=== PATIENT | female | born 1930 | race African-American/Black ===

== ENCOUNTER 2018-10-03 15:15 | Inpatient (IN) | payer OTHER ==
[~2018-10-03] VITALS: Ht 152.4 cm; Wt 50.3 kg
[~2018-10-03 15:15] MED LIST: ALEVE220 M1 PO; AMLODIPINE BESYL5 MG PO; ASPIR 8181 M1 PO; BELSOMRA10 MG PO; COZAAR100 MG PO; CRESTOR5 MG PO; FISH OIL 500 M1 EAC1 PO; FISH OIL300 MG; HYDRALAZINE 2525 MG PO; INDAPAMIDE2.5 MG PO; LANTUS SQ; NOVOLOG100 UNIT/1 SQ; PLAVIX 75 MG TA75 MG PO; PRAVACHOL20 MG PO; SAVAYSA30 MG PO; VITAMIN D1000 UNI1; VITAMIN D1000 UNI1 PO; XALATAN2.5 ML OP
[2018-10-03 15:19] VITALS: BP 215/92
[2018-10-03 15:57] LABS: ABSOLUTE NEUTROPHILS 4.8 thou/uL (1.4-8.2); BASOPHILS 0.7 % (0.0-2.0); HEMATOCRIT 40.2 % (37.0-47.0); HEMOGLOBIN 13.4 gm/dL (12.0-15.0); LYMPHOCYTES 28.8 % (24.0-44.0); MCH 32.8 pg (26.0-34.0); MCHC 33.4 g/dL (28.0-37.0); MCV 98.2 fL (80.0-100.0); MONOCYTES 9.3 % (1.0-8.0); PLATELET COUNT 210 thou/uL (150-400); POLYS 59.2 % (36.0-66.0); RDW 12.2 % (10.5-14.5)
[2018-10-03 16:08] LABS: PROTIME 10.4 Seconds (9.3-11.4)
[2018-10-03 16:09] LABS: URINE BILIRUBIN NEGATIVE (Negative); URINE BLOOD TRACE (Negative); URINE CLARITY CLEAR; URINE COLOR YELLOW; URINE GLUCOSE-RANDOM* TRACE (Negative); URINE KETONES NEGATIVE (Negative); URINE LEUKOCYTES-REFLEX NEGATIVE (Negative); URINE NITRITE-REFLEX NEGATIVE (Negative); URINE PROTEIN (DIPSTICK) NEGATIVE (Negative); URINE UROBILINOGEN 0.2 E.U./dl (0.2-1.0)
[2018-10-03 16:30] LABS: ALBUMIN 4.2 g/dL (3.4-5.0); CALCIUM 10.5 mg/dL (8.5-10.1); MAGNESIUM 2.3 mg/dL (1.8-2.4); TOTAL BILIRUBIN 1.1 mg/dL (<0.1-1.0)
[2018-10-03 17:32] VITALS: BP 190/85
[2018-10-03 19:42] VITALS: BP 130/54
[2018-10-03 20:00] VITALS: BP 205/89
[2018-10-03] MEDS ORDERED: COMBIGAN EYE DR10 ML OPHTHALMIC (20:38)
[2018-10-03 23:30] VITALS: BP 175/99
[2018-10-04] VITALS (7 sets, daily range): BP systolic 95–187; BP diastolic 54–101
--- NOTE | 2018-10-04 04:07 | NUR ---
PATIENT IS ALERT TO SELF AND SITUATION. PATIENT IS SBA WITH WALKER. PATIENT HAS SOME EXPRESSIVE APHASIA, VERY MILD ATAXIA, MILD CONFUSION. NIH IS A 4. PATIENT IS CLEAR LIQUIDS. SKYLER PASSED BEDSIDE SWALLOW. PATIENT HAS A PACE MAKER AND IS A-PACED ON TELE. SKYLER LIVES AT HOME WITH DAUGHTER ADOLFO ([place]). PATIENT CAN TURN SELF. PATIENT DENIES PAIN. PATIENT IS RESTING COMORTABLY IN BED. WMC. PATIENT IS PROGRESSING TO GOALS.
--- NOTE | 2018-10-04 18:42 | NUR ---
PATIENT HAS RESTED IN ROOM THROUGH THE DAY. MINIMAL STROKE SYMTOMS. SHE KNOWS WHERE SHE IS, NO DROOLING NOTED, STRENGHT EQUAL BOTH EXTREMITIES. SHE IS ALERT ORIENTED X4. NO CONCERNS RAISED AT THIS TIME. PLEASANT AND WITH CARE.
[2018-10-05 03:45] VITALS: BP 111/49
--- NOTE | 2018-10-05 05:49 | NUR ---
calls for assist out of bed. denies pain. she did wake up suddenly tonight and had a period of confusion, she re- orients easily. she asks many questions when medications offered to her, she is hesitant to take medications and unsure at times. blood pressure hypertensive tonight. recieved order to give clonidine prn for systolic blood pressure greater than 160. she did have a lower than normal pressure early this am.
[2018-10-05 06:23] LABS: CALCIUM 10.4 mg/dL (8.5-10.1); CREATININE 1.3 mg/dL (0.6-1.0); POTASSIUM 4.5 mmol/L (3.5-5.1)
[2018-10-05 07:32] VITALS: BP 92/60
[2018-10-05 11:18] VITALS: BP 94/44
[2018-10-05 15:24] VITALS: BP 107/55
[2018-10-05 16:35] LABS: CREATININE 1.6 mg/dL (0.6-1.0); POTASSIUM 4.4 mmol/L (3.5-5.1)
--- NOTE | 2018-10-05 18:00 | NUR ---
PATIENT DOES NOT SEEM TO BE IN PAIN AT THIS TIME. RESPIRATIOSN ARE NON LABORED. CREAT NOTED TO TREND UP THROUGH THE DAY. NEW ORDERS BY DR RUSSELL. PATIENT ENCOURAGED TO DRINK MORE FLUIDS. WILL CONT WITH PLAN OF CARE.
--- NOTE | 2018-10-05 18:17 | EKG ---
[address] [address] ELECTROCARDIOGRAM REPORT Name: ANTONIO ORTEZGLADIS Londono Room #: 360- ADM IN M.R.#: [id number] Admission: 10/03/18 Attend Phys: Odell Calderon MD, FAAF Discharge: Date of : 32 Report #: [id number] THIS REPORT FOR: //name// [facility] ED Test Date: 2018-10-03 Test Time: 15:59:13 Pat Name: SIENNA ORTEZ Department: Room: [facility] Gender: F Membership Solicitor: [place] : 1930 Requested By: Michel Funk Order Number: [id number] MD: Manuel Quesada Measurements Intervals [place] Rate: 60 P: LA: 132 QRS: 18 QRSD: 81 T: 77 QT: 423 QTc: 423 Interpretive Statements Atrial-paced rhythm Nonspecific ST segment abnormality Compared to ECG 02/24/2016 11:34:56 No significant change was found Electronically Signed On 10-05-2018 18:16:50 CDT by Manuel Quesada [email or web address] <ELECTRONICALLY SIGNED> By: Manuel Quesada MD, [facility] 10/05/18 1816 1559 1559 Manuel Quesada MD, [facility] /EPI
[2018-10-05 20:02] VITALS: BP 129/60
[2018-10-06] VITALS (7 sets, daily range): BP systolic 98–198; BP diastolic 47–80
[2018-10-06 01:05] LABS: GLYCOHEMOGLOBIN (HGB A1C) 6.1 % (4.8-5.6)
--- NOTE | 2018-10-06 04:12 | NUR ---
patient is alert and oriented. patient is nih is zero. nih is not ordered. patient is up time one with a walker. patient is a paced. patient has a pacemaker. patient is achs. patients blood pressure has been stable. patient is pending possible discharge. patient is resting comfortably in bed. wcm. patient is progressing to goals. patient denies pain.
[2018-10-06 05:54] LABS: CALCIUM 9.5 mg/dL (8.5-10.1); CREATININE 1.2 mg/dL (0.6-1.0); POTASSIUM 3.9 mmol/L (3.5-5.1)
[2018-10-06 05:59] LABS: ABSOLUTE NEUTROPHILS 3.2 thou/uL (1.4-8.2); BASOPHILS 0.4 % (0.0-2.0); EOSINOPHILS 2.8 % (0.0-3.0); HEMATOCRIT 35.1 % (37.0-47.0); HEMOGLOBIN 12.1 gm/dL (12.0-15.0); LYMPHOCYTES 41.3 % (24.0-44.0); MCH 34.1 pg (26.0-34.0); MCHC 34.5 g/dL (28.0-37.0); PLATELET COUNT 183 thou/uL (150-400); POLYS 46.5 % (36.0-66.0); RBC 3.55 mil/uL (4.20-5.00); RDW 12.1 % (10.5-14.5); WBC 6.9 thou/uL (4.0-11.0)
[2018-10-06 06:00] LABS: CALCIUM 9.6 mg/dL (8.5-10.1); CREATININE 1.2 mg/dL (0.6-1.0); PHOSPHORUS 3.3 mg/dL (2.5-4.9)
--- NOTE | 2018-10-06 14:27 | NUR ---
INITIAL ASSESSMENT: SW reviewed chart and spoke with nursing and attending physician. Pt was admitted from home due to CVA. Pt with hx of CVAs. Therapy evaluated to assess pt. 5N consult ordered today. SW met with pt at [facility]. Introduced role of SW. Pt is alert/orientated to self and place. Pt asked SW to contact her dtr, Tory. SW spoke with Tory via phone. Pt and dtr live in a ranch-style home. No steps to enter. No steps inside. Pt has cane, walker, BSC and shower bench. Pt has used [facility] in the past. [place] [facility] [place] Pt's PCP is Dr. Emery Calderon. SW explained that therapy will evaluate and make recommendation for discharge needs. SW is following to assist as needed with discharge planning.
--- NOTE | 2018-10-07 02:13 | NUR ---
PATIENT IS ALERT AND ORIENTED. PATIENT IS SBA. PATIENT USES A WALKER. PATIENT IS ON ROOM AIR. PATIENT IS A-PACED. PATIENT IS HAS A PACEMAKER. PATIENTS LBM WAS THE 22ND. PATIENT DENIES PAIN. THE PLAN IS TO GET A 5N EVAL TODAY AND POSSILBE TO TO REHAB. PATIENT IS RESTING COMFORTABLY IN BED. WCM. PATIENT IS PROGRESSING TO GOALS.
[2018-10-07 04:18] VITALS: BP 121/56
[2018-10-07 07:50] VITALS: BP 164/60
--- NOTE | 2018-10-07 10:36 | 2DMMODE ---
[facility] [employer] [place] [address] 2 D/M-MODE ECHOCARDIOGRAM Name: SIENNA ORTEZ R Room #: 360-P ADM IN M.R.#: [id number] Admission: 10/03/18 Attend Phys: Odell Calderon MD, Discharge: Date of : 32 Date of Service: 10/07/18 1036 Report #: [id number] THIS REPORT FOR: //name// APPROVED REPORT Study performed: 10/07/2018 09:41:43 EXAM: Comprehensive 2D, Doppler, and color-flow Echocardiogram Patient Location: Echo lab Room #: 360 Status: routine BSA: 1.45 HR: 62 bpm BP: 164/60 mmHg Rhythm: NSR Other Information Study Quality: Good Indications TIA. Hx: Pacemaker, CVA, HTN, DM. 2D Dimensions RVDd: 27.01 mm IVSd: 12.00 (7-11mm) LVOT Diam: 19.09 (18-24mm) LVDd: 31.00 mm PWd: 10.00 (7-11mm) Ascending Ao: 24.87 (22-36mm) LVDs: 19.10 (25-40mm) Aortic Root: 24.74 mm Volumes Left Atrial Volume (Systole) Single Plane 4CH: 12.89 mL Aortic Valve AoV Peak Rj.: 1.54 m/s AO Peak Gr.: 9.52 mmHg LVOT Max P.19 mmHg LVOT Max V: 1.02 m/s DONY Vmax: 1.90 cm2 Mitral Valve E/A Ratio: 0.6 MV Decel. Time: 357.61 ms MV E Max Rj.: 0.53 m/s MV A Rj.: 0.95 m/s [facility] [address] [place] [address] 2 D/M-MODE ECHOCARDIOGRAM Name: SIENNA ORTEZ Room #: 360-[facility] IN [facility].#: [id number] Admission: 10/03/18 Attend Phys: Odell Calderon MD, Discharge: Date of : 31 Date of Service: 10/07/18 1036 Report #: [id number] PHT: 103.71 ms IVRT: 100.35 ms Pulmonary Valve PV Peak Rj.: 0.65 m/s PV Peak Gr.: 1.71 mmHg Pulmonary Vein P Vein S: 0.64 m/s P Vein A: 0.53 m/s P Vein D: 0.26 m/s P Vein A Dur.: 138.4 msec P Vein S/D Ratio: 2.46 Tricuspid Valve TR Peak Rj.: 2.52 m/s RAP Estimate: 5.00 mmHg TR Peak Gr.: 25.35 mmHg PA Pressure: 30.00 mmHg Left Ventricle The left ventricle is normal size. There is normal LV segmental wall motion. Mild basal septal hypertrophy is present. Left ventricular systolic function is hyperdynamic. Mild intracavitary gradient (18 mmHg) LVEF is 65-70%. Mild diastolic dysfunction is present (impaired relaxation pattern). Right Ventricle The right ventricle is normal size. The right ventricular systolic function is normal. Atria The left atrium size is normal. The atrial septum is aneurysmal. No shunting by contrast bubble injection. The right atrium size is normal. Aortic Valve The aortic valve is mildly sclerotic No aortic regurgitation is present. There is no aortic valvular stenosis. Mitral Valve The mitral valve is normal in structure. Trace mitral regurgitation. Tricuspid Valve The tricuspid valve is normal in structure. Mild to moderate tricuspid regurgitation. Estimated PAP is 30-35mmHg. Pulmonic Valve Pulmonic valve is not well visualized. [address] [address] 2 D/M-MODE ECHOCARDIOGRAM Name: SIENNA ORTEZ Room #: 360-P [facility] IN [facility]#: [id number] Admission: 10/03/18 Attend Phys: Odell Caledron MD, Discharge: Date of : 31 Date of Service: 10/07/18 1036 Report #: [id number] Great Vessels The aortic root is normal in size. Ascending aorta is not well visualized. IVC is normal in size and collapses >50% with inspiration. Pericardium There is no pericardial effusion. <Conclusion> Left ventricular systolic function is hyperdynamic. Mild intracavitary gradient (18 mmHg) There is normal LV segmental wall motion. LVEF 65-70%. Mild diastolic dysfunction. The atrial septum is aneurysmal. No shunting by contrast bubble injection. The aortic valve is mildly sclerotic. No aortic regurgitation or stenosis. The mitral valve is normal in structure. Trace mitral regurgitation. Mild to moderate tricuspid regurgitation. Estimated pulmonary artery pressure of 30-35mmHg. There is no pericardial effusion. <ELECTRONICALLY SIGNED> By: Manuel Quesada MD, FACC 10/07/18 1036 1036 Manuel Quesada MD, FACC /INF
[2018-10-07 11:35] VITALS: BP 117/47
--- NOTE | 2018-10-07 14:28 | NUR ---
DISCHARGE NOTE: SW reviewed chart and spoke with nursing and 5N occupational rehabilitation aide, who states they are able to accept pt today. SW notified attending physician, who will discharge pt. SW met with pt at bedside to provide update and discuss moving to 5N. Pt is aware and agreeable with plan. Pt states that she knows that she needs to get stronger before returning home. SW left voice message for pt's dtr, Tory ([phone]) to provide update and notify of discharge. 5N occupational rehabilitation aide had spoke with Tory earlier today and Tory is agreeable with discharge. Awaiting final discharge orders at this time. Rehab SW/CM to follow and assist as needed with discharge planning.
--- NOTE | 2018-10-07 16:01 | NUR ---
PATIENT WILL BE DISCHARGED TO 5N SOMETIMES THIS PM. SHE IS ALERT ORIENTED X4. RESPIRATIOS NON LABORED. DOES NOT SEEM TO BE IN PAIN. UP WITH WALKER WITH ASSIST OF ONE. WILL CONT WITH PLAN OF CARE.
[2018-10-07 16:39] VITALS: BP 159/85
--- NOTE | 2018-10-07 19:38 | NUR ---
PATIENT DISCHARGED TO 5N. REPORT GIVEN TO NURSE. NO C/O PAIN AT THIS TIME.
--- NOTE | 2018-10-10 18:17 | H ---
[facility] [place] [address] HISTORY AND PHYSICAL Name: SIENNA ORTEZ Room #: 360-P [facility] IN M.R.#: [id number] Admission: 10/03/18 Attend Phys: Odell Calderon MD, [facility] Discharge: 10/07/18 Date of : 31 Report #: [id number] THIS REPORT FOR: //name// CC: Benny Calderon DATE OF SERVICE: 10/03/2018 CHIEF COMPLAINT: Stroke in evolution, garbled speech. HISTORY OF PRESENT ILLNESS: The patient is an 87-year-old black female well known to me with hypertension, insulin using diabetes, history of multiple strokes who had had some garbled speech, left facial droop intermittently over 2 weeks with sporadic elevations in her blood pressure as well. Her daughter called me and described her condition and said that it was worse and I directed them to the Emergency Department at [facility]. There, a CT scan of the head was normal. Her blood pressure was elevated, but responded to IV hydralazine. She is admitted to the hospital and a Neurology consult is placed. PAST MEDICAL HISTORY: Hysterectomy 1970s, multiple CVAs, TIAs, right lower quadrant hernia with no surgical intervention, diabetes using insulin, chronic renal insufficiency, hypertension, hyperlipidemia, pacemaker for sick sinus syndrome, ICD, mild dementia, sciatica. MEDICATIONS: Hydralazine 25 mg 1 p.o. q.6 hours p.r.n. blood pressure elevation, amlodipine 5 mg p.o. daily, losartan 100 mg 1 p.o. daily, Bystolic 5 mg to 10 mg p.o. daily p.r.n. elevated blood pressure, insulin NovoLog 3 units subQ q. a.c., fish oil 500 mg, soft gel one daily, Xalatan eye drops 0.005% 1 drop both eyes at bedtime, Lantus 5 units subQ at bedtime, Belsomra 20 mg at bedtime p.r.n. insomnia, pravastatin 20 mg 1 p.o. at bedtime. ALLERGIES: DETEMIR INSULIN, PENICILLIN, SULFA, CRESTOR. SOCIAL HISTORY: Nonsmoker. Lives with daughter, always sports active throughout her life. FAMILY HISTORY: Noncontributory. REVIEW OF SYSTEMS: Garbled speech, elevated blood pressure, left facial droop. No chest pain, shortness of breath. No abdominal pain. No lateralizing symptoms other than the face as far her neurologic status is concerned. No tingling, paresthesias. No focal debility. Remainder of systems review is negative. OBJECTIVE: VITAL SIGNS: Temperature 37.1, pulse 63, respirations 18, blood pressure [address] [address] HISTORY AND PHYSICAL Name: KIMBERLEE ORTEZAKANKSHA Londono Room #: 360-P [facility] IN M.R.#: [id number] Admission: 10/03/18 Attend Phys: Odell Calderon MD, FAAF Discharge: 10/07/18 Date of : 31 Report #: [id number] 215/92, pulse oximetry on room air is 100%. She weighs 52.16 kilograms or 115 pounds. GENERAL: She is alert. She is no immediate distress. She does have some expressive aphasia though and some garbled speech. She has a left facial droop. HEENT: Pupils are equal, round and reactive to light and accommodation. Extraocular muscle intact. Pharynx unremarkable. Tongue is midline. NECK: Supple. CARDIOVASCULAR: S1, S2. CHEST: Clear. ABDOMEN: Soft, nontender. EXTREMITIES: No cyanosis, clubbing or edema. NEUROLOGIC: She has some garbled speech, expressive aphasia, left facial droop, but motor strength 4/5 bilaterally and throughout all four extremities. DERMATOLOGIC: No disturbing lesions or rash. LABORATORY DATA: EKG: Paced rhythm, rate 60. LABORATORY EVALUATION: CBC: White count 8.0, hemoglobin 13.4, hematocrit 40.2, platelets 210,000. Differential white count 59% segmented neutrophils, 28% lymphocytes, 9% monocytes, 2% eosinophils, 0.7% basophils. PT 10.4, INR 1.0. Chemistry: Sodium 143, potassium 4.0, chloride 106, CO2 of 28, anion gap 9, BUN 19, creatinine 1.0. Estimated glomerular filtration rate 64, glucose 107, calcium is 10.5, magnesium 2.3, total bilirubin 1.1, AST 35, ALT 43, alkaline phosphatase 89. Troponin less than 0.06. Total protein 8.0, albumin 4.2. Urinalysis was negative and a CT scan of the head, no evidence of acute intracranial abnormality, age-related atrophy and advanced chronic microvascular ischemic changes were noted. ASSESSMENT: Subacute stroke, hypertensive urgency, insulin-dependent diabetes, history of strokes, left facial droop, expressive aphasia and aphasia. PLAN: Admit to hospital, control blood pressure monitoring, control blood sugars. Anticipate MRI. Neuro consult working. <ELECTRONICALLY SIGNED> By: Odell Calderon MD, FAAFP, FACEP 10/10/187 1800 29 Odell Calderon MD, FAAFP, FACEP /nt
--- NOTE | 2018-10-17 15:16 | HC ---
[facility] [place] [address] [place] [address] CONSULTATION Name: SIENNA ORTEZ Room #: 360-P [facility] IN M.R.#: [id number] Admission: 10/03/18 Attend Phys: Odell Calderon MD, FAAF Discharge: 10/07/18 Date of : 31 Report #: [id number] THIS REPORT FOR: //name// CC: Benny Calderon DATE OF SERVICE: 10/06/2018 HISTORY OF PRESENT ILLNESS: The patient is an 87-year-old -[place] female who was admitted with garbled speech and left-sided weakness. CT of the head was negative. She is unable to undergo an MRI scan with the prior implantable cardiac defibrillator. Neurology is involved. Impression is that of subacute stroke with dysarthria. We are seeing in Rehabilitation Medicine consultation. PAST MEDICAL HISTORY: Includes hypertension, insulin-dependent diabetes mellitus, multiple CVAs, apparently had a CVA back in 2018 with some residual left-sided weakness. She has sick sinus syndrome, status post permanent pacemaker with implantable cardiac defibrillator, history of mild dementia, history of hyperlipidemia, chronic renal insufficiency. MEDICATIONS: Please see the full medication listing, which include vitamins, herbals, and supplements per report. ALLERGIES: DETEMIR INSULIN, PENICILLIN, SULFA, CRESTOR. FAMILY HISTORY: Noncontributory. SOCIAL HISTORY: Nonsmoker, lives with daughter, house, no steps. She has a walker, although it sounds like she did not like to use. REVIEW OF SYSTEMS: No current complaints of chest pain, shortness of breath, or abdominal discomfort. PHYSICAL EXAMINATION: GENERAL: An 87-year-old -[place] female, in no obvious distress. VITAL SIGNS: Last recorded temperature 98.7, pulse 65, respirations 18, blood pressure 198/67. HEENT: She may have some mild depressed left nasolabial fold. EOMs, some lateral nystagmus. No nystagmus of upward gaze. NEUROLOGIC: The patient is alert, pleasant. She is able to verbalize short sentences. Follows basic 1 step commands. Defers some of the answers to her friend who was in the room. She has functional range of motion of the upper and lower extremities. I would grade her strength at probably a grade 3+ to 4-/5. DTRs are trace to 1. She was min assist with sit to stand and did ambulate 25 feet min assist with a front-wheeled walker. [address] [address] CONSULTATION Name: SIENNA ORTEZ Bry Room #: 360-P [facility] IN .R.#: [id number] Admission: 10/03/18 Attend Phys: Odell Calderon MD, FAAF Discharge: 10/07/18 Date of : 31 Report #: [id number] ASSESSMENT: An 87-year-old -[place] female with the following problem list: 1. Subacute stroke. 2. Left-sided weakness with dysarthria. 3. Diabetes mellitus type 2, requiring insulin. 4. Chronic kidney disease. 5. Prior history of multiple cerebrovascular accidents without significant residual per history. 6. History of sick sinus syndrome, status post permanent pacemaker and implantable cardiac defibrillator. 7. Hypertension. 8. Hyperlipidemia. PLAN: Therapy evaluations are underway. We will be glad to assist regarding her rehab therapy needs as she further medically stabilizes. We will be glad to follow along with you. <ELECTRONICALLY SIGNED> By: Denis Quiroz MD 10/17/18 1516 1402 0106 Denis Quiroz MD /[facility]
== END 2018-10-07 19:35 | DRG 64 ==
LOC: ER 15:15 → EROBS 17:24 → 3W 17:24
PROVIDERS: Emergency Medicine; Internal Medicine; ADMIT Family Medicine
DX: I63.9 Cerebral infarction, unspecified (principal); N17.0 Acute kidney failure with tubular necrosis; I16.0 Hypertensive urgency; I12.9 Hypertensive chronic kidney disease with stage 1 through stage 4 chronic kidney disease, or unspecified chronic kidney disease; E11.22 Type 2 diabetes mellitus with diabetic chronic kidney disease; N18.9 Chronic kidney disease, unspecified; E78.5 Hyperlipidemia, unspecified; I49.5 Sick sinus syndrome; F03.90 Unspecified dementia, unspecified severity, without behavioral disturbance, psychotic disturbance, mood disturbance, and anxiety; H40.9 Unspecified glaucoma; E11.36 Type 2 diabetes mellitus with diabetic cataract; E83.52 Hypercalcemia; M54.30 Sciatica, unspecified side; Z79.899 Other long term (current) drug therapy; Z88.8 Allergy status to other drugs, medicaments and biological substances; Z79.4 Long term (current) use of insulin; Z90.710 Acquired absence of both cervix and uterus; Z95.0 Presence of cardiac pacemaker; Z88.0 Allergy status to penicillin; Z88.2 Allergy status to sulfonamides; Z82.3 Family history of stroke; Z83.3 Family history of diabetes mellitus; I69.322 Dysarthria following cerebral infarction; I69.320 Aphasia following cerebral infarction
CPT/HCPCS: 10879

== ENCOUNTER 2018-10-07 13:37 | Inpatient (IN) | payer OTHER ==
[~2018-10-07] VITALS: Ht 152.4 cm; Wt 51.3 kg
--- NOTE | ~2018-10-07 | PLAN ---
[facility] [place] [address] REHAB UNIT PLAN OF CARE Name: SIENNA ORTEZ Room #: 510-P ADM IN M.R.#: [id number] Admission: 10/07/18 ������������������ Attend Phys: Denis Quiroz MD Discharge: ������������������ Date of : 31 Report #: [id number] THIS REPORT FOR: //name// CC: Denis Calderon DATE OF SERVICE: 10/10/2018 PROGRESS NOTE/OVERALL PLAN OF CARE SUBJECTIVE: The patient is seen back today in followup. She is in no distress. Last recorded temperature 97.9, pulse 67, respirations 20, blood pressure 133/48. She has been working in therapies and has progressed as far as transfers, contact guard, gait is up to 200 feet without a device with contact guard min assist. She is easily distracted. Working on higher level balance skills. She has moderate to severe memory deficits. Lower body dressing is min assist. ASSESSMENT: 1. Subacute stroke. 2. Left-sided weakness. 3. Dysarthria with word finding deficits. 4. Diabetes mellitus type 2, requiring insulin. 5. Chronic kidney disease. 6. 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 7. History of sick sinus syndrome, status post permanent pacemaker and implantable cardiac defibrillator. 8. Hypertension. 9. Hyperlipidemia. PLAN: The overall plan of care is based on the preadmission screen, post-admission physician evaluation and information garnered from therapy assessments. 1. Estimated length of stay is probably 7-10 days, maybe 2 weeks depending upon how she does. 2. Medical prognosis is reasonably good. 3. Anticipated interventions includes the interdisciplinary acute inpatient rehabilitation program. 4. Anticipated functional outcomes would be for the patient to become modified independent with transfers, mobility, ADLs and communication, cognition so she can return back to the home setting. 5. Discharge destination would be back home where she lives with her daughter. 6. Expected therapy by discipline includes PT, OT and speech 1 hour per day [address] [address] REHAB UNIT PLAN OF CARE Name: ORTEZKIMBERLEESIENNA R Room #: 510-P [facility] IN ..#: [id number] Admission: 10/07/18 ������������������ Attend Phys: Denis Quiroz MD Discharge: ������������������ Date of : 31 Report #: [id number] each five days a week throughout the duration of the acute inpatient rehabilitation stay. ��������������������������������������������� ���������������������������������������� By: ��������������������������������������������� 0906 0012 Denis Quiroz MD /ALLEN
[~2018-10-07 13:37] MED LIST changes: +COMBIGAN EYE DR10 ML OPHTHALMIC
[2018-10-07 20:56] VITALS: BP 165/71
--- NOTE | 2018-10-08 03:22 | NUR ---
ASSUMED CARE OF PT [id number]. PT BROUGHT TO UNIT BY NURSESOURAV WHO GAVE BEDSIDE REPORT. PT TRANSFERED TO BED, DAUGHTER PRESENT FOR ADMISSION ASSESSMENT, CONSENTS SIGNED, EDUCATION GIVEN, PT ORIENTED TO ROOM, CONSULTS CALLED IN. PT IS A&OX4 BUT HAS SOME CONFUSION DURING THE NIGHT. TRANSFERS AND AMBULATES WITH 1 PERSON MIN ASSIST WITH GAIT BELT AND WALKER. FALL PRECAUTIONS IN PLACE AND NURSING WILL CONTINUE TO MONITOR.
[2018-10-08 06:20] LABS: HEMATOCRIT 37.7 % (37.0-47.0); HEMOGLOBIN 12.7 gm/dL (12.0-15.0); MCH 32.9 pg (26.0-34.0); MCHC 33.6 g/dL (28.0-37.0); RBC 3.85 mil/uL (4.20-5.00); RDW 12.2 % (10.5-14.5); WBC 6.4 thou/uL (4.0-11.0)
[2018-10-08 06:31] LABS: CALCIUM 9.8 mg/dL (8.5-10.1); POTASSIUM 4.2 mmol/L (3.5-5.1)
[2018-10-08 09:00] VITALS: BP 145/59
--- NOTE | 2018-10-08 12:32 | NUR ---
Assumed pt care at 7am.Pt in bed resting and wanted to work more with speech therapist today regarding communication.Assessment completed.vss.insulin given as ordered with each meal.Pt tolearted meds. Pt ambulated in hallways with therapist. Good enduracne noted.Chair and bed alarm in use for safety.Pt will be going for lunch with group in the food court.Pt up in chair resting at present.Will continue to monitor.
--- NOTE | 2018-10-08 14:06 | NUR ---
Patient participated in community reintegration on 10/08/18 with Physical Therapy. Refer to documentation by PT.
--- NOTE | 2018-10-08 15:08 | NUR ---
Case opened to follow for dc planning. Pt admitted to 5N acute rehab with new subacute stroke and lt sided weakness. Pt has previous hx of cva's. Cm role and team conference reveiwed with the pt at bedside. Message left for her dtr/dpoa Tory. Pt and Tory live together in a condo with no steps. Everything is on the main level. The pt has lifeline and she has had hh from [facility] in the past. She has a rwalker, cane, bsc and a bath bench at home. Pt's goal is to return to her prior living situation. Team conference next Saturday for est los and assess dc planning needs.
[2018-10-08 19:15] VITALS: BP 151/73
--- NOTE | 2018-10-09 03:14 | NUR ---
assumed care at approx 1900 evening 10/08. pt lying in bed with head of bed elevated resting at change of shift. pt alert and oriented, appropriate and cooperative. pt took hs meds with water tolerating well. pt appears to be sleeping soundly with hourly rounding checks. bed alarm on and call light in reach. will continue to monitor.
[2018-10-09 08:10] VITALS: BP 130/58
--- NOTE | 2018-10-09 16:30 | NUR ---
ASSUMED CARE OF PT AT 0715. PT IS A&OX4 WITH PERIODS OF FORGETFULNESS, AND VITAL SIGNS ARE STABLE. PT TOLERATED PO MEDICAITONS WHOLE WITH THIN LIQUIDS. TRANSFERS AND AMBULATES WITH 1 PERSON SBA WITH GAIT BELT AND WALKER. ACCUCHECKS ACHS AND BG MANAGED WITH INSULIN. IV REMOVED FROM RIGHT HAND, SITE W/O REDNESS, DRAINAGE, OR EDEMA. PT DENIES PAIN, BUT DOES REPORT THAT SHE HAD PAIN YESTERDAY IN HER LOWER BACK AND WAS ASKING FOR LIDOCAINE PATCH, ORDERS RECEIVED FOR DAILY LIDOCAINE PATCH. FALL PRECAUTIONS IN PLACE AND NURSING WILL CONTINUE TO MONITOR.
--- NOTE | 2018-10-09 18:50 | NUR ---
AT APPROXIMATELY 1645, PT ACCU CHECK SHOWED BG OF 54. NURSE IMMEDIATELY ASSESSED PT AND FOUND PT TO BE ASYMPTOMATIC. PT WAS IMMEDIATELY GIVEN 4 OUNCES OF APPLE JUICE PER HYPOGLYCEMIA PROTOCOL. APPROXIMATELY 15 MINUTES LATER PT WAS NOTABLY IRRITABLE AND BLOOD GLUCOSE RECHECK WAS 44. 1 GLUCOSE TABLET GIVEN TO PT AND HER MEAL TRAY WAS OFFERED AT THAT TIME WELL. RECHECK OF BLOOD GLUCOSE APPROXIMATELY 20 MINUTES LATER FOUND BG 95. PT IS NOW IN BED, PLEASENT, ASYMPTOMATIC, AND NURSING WILL CONTINUE TO MONITOR AND RECHECK PT NEEDED. DR. PALENCIA REPORTED TO NURSE THAT HE WOULD BE IN TO SEE PT THIS EVENING, BUT HAS NOT BEEN TO UNIT AT THIS TIME, OFFICE CALLED AND HAS CLOSED. NURSE WILL ATTEMPT TO CALL ANSWERING SERVICE.
[2018-10-09 19:45] VITALS: BP 133/48
--- NOTE | 2018-10-09 19:49 | NUR ---
ANSWERING SERVICE CALLED BY THIS NURSE. SERVICE STATED THAT THEY WILL PAGE LARD BLEACHER WITH MESSAGE ABOUT EPISODE OF HYPOGLYCEMIA THIS EVENING. NO RETURN CALL AT THIS TIME. PT CONTINUE TO BE ASYMTOMATIC, PT EDUCATED ABOUT HYPOGLYCEMIA AND S/S TO REPORT, PT EXPRESSED UNDERSTANDING, NURSING WILL CONTINUE TO MONITOR PT.
--- NOTE | 2018-10-10 00:37 | NUR ---
Care assumed of patient at 1915: Patient alert and oriented x4. Some forgetfulness observed. Patient pleasant and cooperative. Patient assisted to the bathroom with FWW and gait belt with min assist. Patient was able to complete mikel care, undressing and dressing with min assist. Patient was able to brush teeth and complete personal hygiene with SBA. Patient blood sugar 243 at HS. Patient reported feeling nauseated. Patient provided Diet lemon [place] soda which she reports was helpful in reducing nausea. Patient took medications without any difficulty. Patient received prescribed Lantus. Patient denies pain or discomfort. Patient required some verbal cues on use of FWW and removing her shoes before she could remove her pants. Patient denied HS snack. Generalized weakness observed. No significant weakness observed to one side of body versus the other. Patient has been resting quietly in bed. Call light within reach. Bed alarm currently on.
[2018-10-10 07:30] VITALS: BP 146/61
--- NOTE | 2018-10-10 18:37 | NUR ---
ASSUMED CARE OF PT AT 0715. REPORTS SLEPT GOOD. PT IS A&OX4 WITH PERIODS OF FORGETFULNESS, REFUSED TOOK EYE DROPS AND LIDOCAIN PATCH EALIER. PT WAS CONFUSED AND PARANOID ABOUT THE TREATMENT. LISTENING TO PT AND GAIN HER TRUST AND SHE WAS ABLE TO DO WELL AND PARTICIPATES WITH TREATMENT, THERAPY AND COMPLIANT WITH MEDS. PT ATE WELL AT BREAKFAST. HAD ONE EPISODE OF VOMITING AND WAS FINE AFTER THAT. DR. PALENCIA CAME TO MAKE ROUND AND ORDERED FOR PRN ZOFRAN. VSS ARE STABLE ON RA. PT TOLERATED PO MEDICAITONS WHOLE WITH THIN LIQUIDS. TRANSFERS AND AMBULATES WITH 1 PERSON SBA WITH GAIT BELT AND WALKER. BS MONITOR, INSULIN AND MEDS GIVEN ORDERED. HAS MILD LOWER BACK AND WAS ASKING FOR LIDOCAINE PATCH. DENIES PAIN AND NAUSEA NOW. FALL PRECAUTIONS IN PLACE AND WILL GIVE REPORT TO NIGHT NURSE TO CONTINUE TO MONITOR.
[2018-10-10 19:40] VITALS: BP 145/55
--- NOTE | 2018-10-11 03:03 | NUR ---
ASSUMED CARE OF PT AT 1915. PT IS A&OX4 BUT FORGETFUL, VITAL SIGNS AND BG STABLE. PT DENIES PAIN, CALLS APPROPRIATELY, TOLERATED HS MEDICATIONS, DENIES NAUSEA. REPORTS NO CONCERNS. FALL PRECAUTIONS IN PLACE AND NURSING WILL CONTINUE TO MONITOR.
[2018-10-11 08:30] VITALS: BP 125/47
--- NOTE | 2018-10-11 14:09 | NUR ---
ASSUMED CARE OF PT AT 0715. REPORTS SLEPT GOOD. PT IS ALERT WITH PERIODS OF FORGETFULNESS AND CONFUSION THIS AM. PT HER MEMORY IS BETTER DURING DAY. VSS ARE STABLE ON RA. PT TOLERATED PO MEDICAITONS WHOLE WITH THIN LIQUIDS. TRANSFERS AND AMBULATES WITH 1 PERSON SBA WITH GAIT BELT AND WALKER. UP TO DINNING FOR MEALS. ATE 95% FOR LUNCH. HER CHIEF CARDIOPULMONARY TECHNOLOGIST CAME TO PRAY WITH HER AFTER LUNCH. PT IS IN GOOD SPIRIT. OFFERED SUPPORTIVE CARE. ENCOURAGED PT TO VOICE HER NEEDS. BS MONITOR, INSULIN AND MEDS GIVEN ORDERED. HAS MILD LOWER BACK AND WAS ASKING FOR LIDOCAINE PATCH. DENIES PAIN.FALL PRECAUTIONS IN PLACE WILL CONTINUE TO MONITOR.
[2018-10-11 19:10] VITALS: BP 141/55
[2018-10-12 09:12] VITALS: BP 122/49
--- NOTE | 2018-10-12 11:47 | NUR ---
ASSUMED CARE OF PT AT 0715. PT IS A&OX4 WITH PERIODS OF FORGETFULNESS AND CONFUSION. TOLERATED PO MEDICAITONS WHOLE WITH THIN LIQUID. PATIENT REPORTED MILD PAIN IN HER LOWER BACK WHICH WAS TREATED WITH ORDERED LIDOCAINE PATCH. PARTICIPATED IN CARES AND THERAPY. ACCU CHECKS ACHS AND MANAGED WITH INSULIN PER ORDERS. FALL PRECAUTIONS IN PLACE AND NURSING WILL CONTINUE TO MONITOR.
[2018-10-12 19:05] VITALS: BP 139/51
--- NOTE | 2018-10-12 19:29 | NUR ---
PT TEARFUL IN ROOM THIS AFTERNOON. PT REPORTS FEELING ALONE AND ISOLATED. WILL RECOMMEND TO THERAPY TOMORROW THAT THEY CONSIDER TAKING PATIENT OFF UNIT AND POSSIBLY OUTSIDE FOR THERAPY. DAUGHTER AGREES AND STATES THAT SHE THINKS HER MOM HAS BEEN INSIDE THE HOSPITAL MORE THAN SHE IS USED TO AND WOULD BENEFIT FROM A TRIP OUTSIDE. NURSING WILL CONTINUE TO MONITOR PT.
--- NOTE | 2018-10-13 01:30 | NUR ---
PATIENT ASSESSED AND IS ALERT X4. SKIN WARM AND DRY. RESP EVEN AND UNLABORED. LUNGS CTA. HAS A POOR APPETITE AND TAKES HER PILLS WHOLE 1 AT A TIME. NO WOUNDS NOTED. VS STABLE. REMAINS A FALL RISK. REMINDED TO TURN FOR COMFORT. STAND BY ASSIST X 1 PERSON TO BATHROOM. IS VERY FORGETFUL. HAS SOME WEAKNESS TO HER RIGHT SIDE, DUE TO HX OF STROKES. ON ROOM AIR. DENIESE ANY SOA. LIDADERM PATCH REMOVED AND WILL BE REPLACE IN AM. BS 227. WILL MONITOR HER BLOOD SUGAR IN 2 AM. HAS HX OF DECREASING DUERING THE NIGHT WITH OUT SYMPTOMS. NO IV . CONT PLAN OF CARE.
[2018-10-13 08:15] VITALS: BP 125/57
--- NOTE | 2018-10-13 16:42 | NUR ---
ASSUMED CARE OF PT AT 0715. PT IS A&OX4 ALTHOUGH SHE IS FORGETFUL, VITAL SIGNS ARE STABLE. PT TOLERATED PO MEDICAITONS WHOLE ONE AT A TIME WITH THIN LIQUIDS. ACCU CHECKS ACHS AND BG MANAGED WITH INSULIN. PT AMBULATES AND TRANSFERS WITH SBA USING GAIT BELT AND WALKER. PARTICIPATED IN SCHEDULED THERAPIES AND WENT OUTSIDE WITH THERAPY. PT REPORTS FEELING HAPPIER SINCE GOING OUTSIDE. DAUGHTER CALLED THIS AFTERNOON AND STATES THAT SHE HAS SOME CONCERNS ABOUT COGNITION WHEN RETURNING HOME AND THERE MAY BE PROBLEMS WITH GETTING 24 HOUR SUPERVISION. PATIENT WAS ABLE TO CALL THIS MORNING FOR HER MEDICAITONS AND IS BEING ENCOURAGED TO CONTINUE CALLING FOR MEDICAITONS. FALL PRECAUTIONS IN PLACE AND NURSING WILL CONTINUE TO MONITOR.
[2018-10-13 19:45] VITALS: BP 173/74
--- NOTE | 2018-10-14 00:13 | NUR ---
PT ASSESSMENT COMPLETED AND VSS. MEDS GIVEN ORDERED AND WELL TOLERATED. FALL PRECAUTIONS IN PLACE. PT STILL A HIGH RISK FOR FALL. PT VERY FATIGUED THIS EVENING. UP TO THE BATHROOM WITH ASST/GAIT/WALKER. STEADY BUT TIRED AFTER GETTING BACK TO THE BED. EYE DROPS GIVEN ORDERED FOR VISION PROBLEMS. PT ANSWERING QUESTIONS APPROPRIATELY BUT FORGETFUL AT THIS TIME. SLEEPING WELL. WILL CONTINUE TO MONITOR FREQUENTLY.
--- NOTE | 2018-10-14 07:37 | NUR ---
LATE ENTRY FIM: BOWEL ELIMINATION FIM FOR 10/08 PER REPORT BY PCT CR MILLAN, PT REQUIRED TOUCHING ASSIST FOR BOWEL MOVEMENT.
[2018-10-14 07:45] VITALS: BP 131/63
--- NOTE | 2018-10-14 13:25 | NUR ---
team meeting, recommendation: sarah 10/17 [facility] ( pt, ot, st, nursing), initial 08/10 supervision , st to education on deanna. pt will need medication management, and outpt neuro pysch
[2018-10-14 19:15] VITALS: BP 143/60
--- NOTE | 2018-10-14 20:46 | NUR ---
ASSUMED CARE OF PT AT 0715. PT IS A&OX4 AND VITAL SIGNS ARE STABLE. PT REPORTS NO PAIN AND PARTICIPATED IN SCHEDULED THERAPIES. PT WAS ENCOURAGED TO CALL FOR MEDICAITONS, BUT FORGOT AT EACH MEDICATION PASS THIS SHIFT. TOLERATES PO MEDICATION WHOLE ONE AT A TIME WITH THIN LIQUIDS. ACCU CHECKS ACHS AND BG MANAGED WITH INSULIN. TRANSFERS AND AMBULATES WITH 1 PERSON SBA USING GAIT BELT AND WALKER. NURSING CONCERNS FOR COGNITION AND ABILITY TO SELF MANAGED MEDICATION WHEN DISCHARGED, CONCERNS DISCUSSED WITH FAMILY AND ARRANGEMENTS ARE BEING MADE TO PROVIDE 24-7 SUPERVISION WHEN DISCHARGED. NURSING WILL CONTINUE TO ENCOURAGE PT TO BE INDEPENDENT IN MANAGING HER OWN CARE. FALL PRECAUTIONS IN PLACE AND NURSING WILL CONTINUE TO MONITOR.
--- NOTE | 2018-10-15 05:11 | NUR ---
ASSUMED PT CARE AROUND 1900. ORIENTED X4 WITH PERIODS OF FORGETFULNESS. DENIES ANY PAIN OR SOA. PT SLEPT MOST OF THE NIGHT. RESPIRATIONS EVEN AND UNLABORED. NO MAJOR COMPLAINTS THIS SHIFT. FALL PRECAUTIONS IN PLACE. PROGRESSING TOWARD POC GOALS.
[2018-10-15 06:18] LABS: HEMATOCRIT 37.2 % (37.0-47.0); HEMOGLOBIN 12.3 gm/dL (12.0-15.0); MCH 32.9 pg (26.0-34.0); MCHC 33.1 g/dL (28.0-37.0); MCV 99.4 fL (80.0-100.0); RBC 3.74 mil/uL (4.20-5.00); RDW 12.3 % (10.5-14.5); WBC 7.2 thou/uL (4.0-11.0)
[2018-10-15 06:26] LABS: CALCIUM 10.3 mg/dL (8.5-10.1); CREATININE 0.9 mg/dL (0.6-1.0); POTASSIUM 3.8 mmol/L (3.5-5.1)
[2018-10-15 07:15] VITALS: BP 153/70
--- NOTE | 2018-10-15 10:21 | NUR ---
deonna visited with jesus at bedside, deonna provided senior blue book for resources outside hospital ie transportation as needed, and private duty " i give it to my daughter, thank you"/jesus.
--- NOTE | 2018-10-15 10:34 | NUR ---
DISCHARGE PLANNING. PATIENT ANTICIPATED TO DISCHARGE TO HOME WITH HOME HEALTH SERVICES. REFERRAL FAXED TO [facility] PER PATIENT REQUEST, VERIFIED REFERRAL RECEIVED. AWAITING ACCEPTANCE RESPONSE. UNIT CM AWARE. FOLLOWING.
--- NOTE | 2018-10-15 12:55 | NUR ---
assumed care at approx 0715. patient a/o x4. vss. denies pain. up x1 assist gb and walker. participating in therapy. blood glucose monitored. patient reported feeling dizzy and jittery, as well as hungry, early in the shift when working with ot. bg was 97. patient given 4oz applejuice and her tray shortly after. am insulin held. bg was 204 at lunch, rene insulin given. patient continues to deny pain. calls appropriately for assitance. fall precautions in place. patient rounded on hourly. will continue to monitor.
[2018-10-15 19:40] VITALS: BP 178/73
--- NOTE | 2018-10-16 03:29 | NUR ---
RECEIVED REPORT FROM OFFGOING NURSE, ASSUMED CARE @ 1900. IN BED, A&OX4 WITH SOME CONFUSION AND FORGETFULNESS NOTED. ABLE TO TRANSFER TO TOILET X1 ASSIST WITH GAIT BELT AND WALKER. EYE DROPS PROVIDED ORDERED. FSBS 152, 5 UNITS OF INSULIN PROVIDEDAS ORDERED, SNACK PROVIDED. CALL LIGHT WITHIN REACH, USES CALL LIGHT APROPRIATELY. ROUNDING ON PATIENT HOURLY FOR PATIENT SAFETY AND CARES. WILL CONTINUE TO MONITOR.
[2018-10-16 07:20] VITALS: BP 150/72
--- NOTE | 2018-10-16 08:17 | NUR ---
Pt seen for early LOS on rehab. Here for subacute CVA, with hx of multiple prior CVA, DM II, CKD. On a 2000 calorie carb controlled diet, eating well. Averaging ~70% of meals over the last 5 days per meal records. On 5 units Lantus at HS, 3 units Humalog w/ meals. BGs range 95-204 mg/dl over the last 2 days, but majority in the 120s-150s. Reports a good appetite, denies any further nutrition needs. RD reviewed high quality protein sources to choose regularly throughout the day. Pt voices being more sensitive to lactose in milk; reviewed alternative milk options. Possible d/c home Saturday per EMR. Remains low nutrition risk.
--- NOTE | 2018-10-16 10:53 | NUR ---
cm visited with pt at bedside rt [facility] and choice, [facility] unable to accept. " you can speak with drt , not feeling well"/jesus. bedside nurse was in room as well checking on pt. cm called spoke with daughter karen via phone call, discussed hh choice " [place] would be 1st choice and then 2nd [place] i guess not had a lot of experience with hh before."/daughter. referral sent to [facility] and they can accept for [facility] at [facility] tomorrow.
[2018-10-16 12:25] VITALS: BP 150/72
[2018-10-16 19:40] VITALS: BP 146/63
--- NOTE | 2018-10-16 19:51 | NUR ---
ASSUMED CARE AT APPROX 0715. PATIENT A/O X4. [place]. FORGETFUL. C/O BACK PAIN, RELIEVED BY LIDOCAINE PATCH. PARTICIPATED IN THERAPY. C/O SUDDEN HEADACHE AND STATED SHE "COULDN'T FORM HER WORDS" DURING PHYSICAL THERAPY. THERAPIST TOOK VITALS- VITAL SIGNS STABLE, BLOOD GLUCOSE WAS 147. PATIENT WAS ASSISTED TO BED. PATIENT ANSWERED ORIENTATION QUESTIONS CORRECTLY, WAS ABLE TO READ SENTENCES AND IDENTIFY OBJECTS IN PICTURES FROM NIH ASSESSMENT. STRENGTH WAS BASELINE FROM THIS MORNING. PATIENT REPORTED HEADACHE WAS BRIEF AND HAD NOT RETURNED. DR. PALENCIA NOTIFIED, STATED HE WOULD ROUND ON PATIENT. SPEECH THERAPIST NOTIFIED, REPORTED PATIENT'S COGNITION HAD NOT SHOWED SIGNIFICANT CHANGE. PATIENT CONTINUED TO CALL APPROPRIATELY. UP X1 ASSIST GB AND WALKER. FALL PRECAUTIONS IN PLACE. RESTING IN RECLINER AT END OF SHIFT.
--- NOTE | 2018-10-17 04:33 | NUR ---
Assumed pt care at 1900. Pt is A/OX4 with periods of forgetfulness noted. VSS. Denies pain on assessment. Up w/SBA RW/GB to bathroom with no problems noted. No c/o GARCIA or lightheadedness reported. Resting with no distress noted,will continue to monitor pt.
[2018-10-17 07:24] VITALS: BP 150/72
[2018-10-17 07:30] VITALS: BP 132/60
--- NOTE | 2018-10-17 10:29 | NUR ---
ASSUMED CARE AT 0700. PATIENT IS ALERT AND ORIENTED, AND FORGETFUL. LUNGS ARE CLEAR. ABD IS SOFT WITH BSX4. UP TO THE BATHROOM WITH ASSIST OF 1 STAFF, GAIT BELT, AND WALKER TO VOID LUDIVINA COLORED URINE. OUT TO THE DINING ROOM FOR MEALS. FALL AND SAFETY PROTOCOLS IN PLACE. DENIES ANY PAIN AT THIS TIME. PLAN FOR D/C LATER TODAY. WILL CONTINUE TO MONITER.
[2018-10-17 11:00] VITALS: BP 150/72
[2018-10-17] MEDS ORDERED: ASPIR 8181 MG PO (12:17)
--- NOTE | 2018-10-17 15:16 | H ---
[facility] [place] [address] [address] [place] [address] HISTORY AND PHYSICAL Name: SIENNA ORTEZ Room #: 510-P ADM IN M.R.#: [id number] Admission: 10/07/18 ������������������ Attend Phys: Denis Quiroz MD Discharge: ������������������ Date of : 31 Report #: [id number] THIS REPORT FOR: //name// CC: Denis Calderon DATE OF SERVICE: 10/07/2018 HISTORY AND PHYSICAL AND POST-ADMISSION PHYSICIAN EVALUATION HISTORY OF PRESENT ILLNESS: The patient is an 87-year-old -[place] female originally admitted to [facility] on 10/03/2018 with garbled speech and left-sided weakness. CT of the head was negative. She is unable to undergo an MRI scan with the prior history of an implantable cardiac defibrillator. Impression was that she had a subacute stroke with dysarthria and left-sided weakness. Neurology has been involved. She was noted to have an ejection fraction of about 60%. Dysarthric speech has improved, but she has had a functional decline from her premorbid status. She has been admitted for acute in-hospital inpatient rehabilitation. PAST MEDICAL HISTORY: Includes hypertension, insulin-dependent diabetes mellitus, multiple CVAs, apparently a CVA back in 2018 with some residual left-sided weakness. History of sick sinus syndrome, status post permanent pacemaker with implantable cardiac defibrillator, history of mild dementia, hyperlipidemia, and chronic renal insufficiency. MEDICATIONS: Please see the full medication listing, which includes vitamins, herbals, and supplements per report. ALLERGIES: DETEMIR INSULIN, PENICILLIN, SULFA, CRESTOR. FAMILY HISTORY: Noncontributory. SOCIAL HISTORY: Nonsmoker, lives with daughter; house, no steps. She has a walker, although it sounds like she did not like to use it. REVIEW OF SYSTEMS: No complaints of chest pain, shortness of breath, abdominal discomfort. No complaints of headache, no visual changes. She notes she has some problems speaking, but thinks it is overall improved. No fever or chills. No bowel or bladder changes. Does not have any focal extremity pain complaints. She notes she has the left-sided weakness, although she thinks may be improving. No focal problems from an emotional perspective. PHYSICAL EXAMINATION: GENERAL: An 87-year-old pleasant -[place] female in no obvious distress. [address] [address] HISTORY AND PHYSICAL Name: SEINNA ORTEZ Room #: 510-P [facility] IN M.R.#: [id number] Admission: 10/07/18 ������������������ Attend Phys: Denis Quiroz MD Discharge: ������������������ Date of : 31 Report #: [id number] VITAL SIGNS: Last recorded temperature 98, pulse 61, respirations 20, and blood pressure 165/71. HEAD, EYES, EARS, NOSE, AND THROAT: Some mild depressed left nasolabial fold. EOMs some lateral nystagmus. No upward gaze nystagmus. No visual field neglect to confrontation alert, some mild expressive deficits. HEENT: Appeared to be benign. CHEST: Sounded clear to auscultation. CARDIOVASCULAR: Regular rate and rhythm. ABDOMEN: Bowel sounds positive, nontender. GENITOURINARY AND RECTAL: Deferred. EXTREMITIES: Functional range of motion of both upper extremities. Lower extremity strength is probably a grade 3+ to 4-/5. She may have some decreased coordination of the left upper extremity. Tone appeared to be intact. DTRs were trace to 1. She is min assist with sit to stand. She is mod assist, ambulating short distances and front-wheeled walker. She has needed mod assist for ADL setup. Lower body dressing has been min assist, mechanical soft diet recommended, noted to have moderate to severe cognition. Some word finding difficulties, question of maybe a Broca's type aphasia per speech. ASSESSMENT: 1. Subacute stroke. 2. Left-sided weakness. 3. Dysarthria/word finding deficits. 4. Diabetes mellitus type 2 requiring insulin. 5. Chronic kidney disease. 6. Prior history of multiple CVAs without significant residual. 7. History of sick sinus syndrome, status post permanent pacemaker and implantable cardiac defibrillator. 8. Hypertension. 9. Hyperlipidemia. PLAN: The patient is admitted for acute in-hospital inpatient rehabilitation. From a postadmission physician evaluation perspective, there are no relevant changes since the preadmission screening. Please see the patient's previous and current functional status. As far as risk of complications, the patient has multiple medical comorbidities as noted above. Initial plan of care involves the interdisciplinary acute inpatient rehabilitation program with goal of maximizing her functional independence, so she can hopefully return back to her prior living situation. Measurable functional goals would be for the patient to become modified independent with transfers, mobility and ADLs as well as improvement with speech and communication so she can return back to the home setting. Prognosis is reasonably good with estimated length of stay probably at least 10 days to 2 weeks and potentially longer if warranted. Potential barriers would include her multiple medical comorbidities and decreased functional status. [facility] [address] [place] [address] HISTORY AND PHYSICAL Name: SIENNA ORTEZ Room #: 510-P ADM IN M.R.#: [id number] Admission: 10/07/18 ������������������ Attend Phys: Denis Quiroz MD Discharge: ������������������ Date of : 31 Report #: [id number] The patient meets diagnostic criteria for an acute in-hospital inpatient rehabilitation stay. She meets the medical necessity criteria and we will have the medical sales consultant physicians continue to follow. She does have the tolerance for therapies and has appropriate discharge goals back to the home setting. ��������������������������������������������� <ELECTRONICALLY SIGNED> ���������������������������������������� By: Denis Quiroz MD ��������������������������������������������� 10/17/18 1516 0838 0941 Denis Quiroz MD /[facility]
--- NOTE | 2018-10-17 19:43 | NUR ---
PATIENT FAMILY HERE TO RECIEVED D/C INSTRUCTIONS. PATIENT UP IN W/C AND LEFT WITH ALL OF HER BELONGINGS, SCRIPT , AND D/C INTSTRUCTIONS.
--- NOTE | 2018-10-18 09:15 | HC ---
[facility] [place] [address] CONSULTATION Name: SINENA ORTEZ Room #: 510-P [facility] IN M.R.#: [id number] Admission: 10/07/18 ������������������ Attend Phys: Denis Quiroz MD Discharge: 10/17/18 ������������������ Date of : 31 Report #: [id number] THIS REPORT FOR: //name// CC: Denis Quiroz Odell Calderon DATE OF SERVICE: 10/11/2018 NEUROBEHAVIORAL STATUS EXAM ATTENDING PHYSICIAN: Denis Quiroz MD. PAPER AND PULP MILL WORKER: Ned Lang, PhD CLINICAL PRESENTATION: The patient is an 87-year-old -[place] female admitted to [facility] on 10/03/2018, with garbled speech and left-sided weakness. A CT scan of the head was negative. She has reported to have had an implantable cardiac defibrillator and could not undergo MRI. Her diagnosis on admission was a subacute stroke. Her assessment on the rehab unit included left-sided weakness, dysarthria/word finding deficits, diabetes mellitus type 2 requiring insulin, chronic kidney disease, prior history of multiple CVAs without significant residual, history of sick sinus syndrome, status post pacemaker placement and implantable cardiac defibrillator, hypertension, and hyperlipidemia. A complete description of her medical condition, history and medication can be found in her chart. Neuropsychological consultation was requested to provide assistance in the assessment of cognitive and emotional status and to provide recommendations and services. Prior to this most recent admission, she reports having been living with her daughter. The patient is a college graduate. 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 She has three sisters and 4 brothers. There is no report of a prior history of treatment for mental disorder. TECHNIQUES UTILIZED: Clinical interview, review of medical records, staff consultation and behavioral observation, mini mental status exam 2 standard version, clock drawing, verbal fluency assessment, and digits forward, digits backward. EXAMINATION FINDINGS: The patient was alert and cooperative with the assessment. She accurately described having had a stroke as the reason for her admission. She reported her current symptoms to include memory, word finding, difficulty with sleep, poor appetite, tiredness, fatigue, anxiety and depressed mood. Frustration in her ability to communicate effectively was also reported. Her performance on the MMSE 2 brief version was extremely low with a raw score of 12-16. She was 3/3 for initial registration. However, she did have [address] [place] [address] CONSULTATION Name: SIENNA ORTEZ Bry Room #: 510-P [facility] IN .R.#: [id number] Admission: 10/07/18 ������������������ Attend Phys: Denis Quiroz MD Discharge: 10/17/18 ������������������ Date of : 31 Report #: [id number] decreased auditory comprehension and reduced hearing, which required several repetitions for initial registration. She was 4/5 for serial sevens, 5/[address] and serial 3 for immediate recall of 3 items after a brief time delay and distraction. Performance on the MMSE 2 standard version was extremely low with a raw score of 20/30, T score 20, percentile rank of less than 1. She was 0/5 for serial 7's, 2/2 for naming, 1/1 for repetition, 3/3 for auditory comprehension, she was able to read and follow a single command. She also could write a sentence. However, she was unable to copy a simple geometric design. Her performance on clock drawing was impaired. She could not adequately place the numbers of the clock as she had forgotten how numbers were placed within the face. Her mood is anxious as she is worried about her performance. Digits forward was within normal limits with a raw score 7, T score of 42, percentile rank of 21. Digits backward was in the borderline range with a T score of 34, percentile rank of 5. Category fluency was extremely low with a raw score of 16 and a T score of 23, which is less than 1%. Letter fluency was in the borderline range with a raw score of 15, T score 36 and percentile rank of 8. Overall, total fluency was extremely low with a raw score of 31, T score 20, percentile rank of less than 1. The patient is showing impairment in verbal fluency likely secondary to deficits in thought organization and sustained concentration. Lower category fluency often indicates deficits within the medial temporal lobe. DIAGNOSTIC IMPRESSION: Major neurocognitive disorder (dementia), with vascular disease and Alzheimer type features, without behavior disorder -- extent to be determined, likely in the moderate range. Adjustment disorder with anxiety and depressed mood. RECOMMENDATIONS: The patient will benefit from the use of an antidepressant medication to assist with sleep and appetite, example Remeron. Verbal praise and complements about participation in therapies. Writing down her goals and helping her recognize the achievement of therapeutic objectives will also improve overall self confidence. The patient will require assistance in the management of medication, finances, and nutrition. The use of relaxation techniques may also benefit anxiety. [facility] [address] [place] [address] CONSULTATION Name: SIENNA ORTEZ Room #: 510-P [facility] IN Rich.#: [id number] Admission: 10/07/18 ������������������ Attend Phys: Denis Quiroz MD Discharge: 10/17/18 ������������������ Date of : 31 Report #: [id number] Thank you very much for allowing me to provide the consultation on this patient. ��������������������������������������������� <ELECTRONICALLY SIGNED> ���������������������������������������� By: Ned Lang, PhD ��������������������������������������������� 10/18/18 0915 1514 0138 Ned Lang, PhD /nt
== END 2018-10-17 19:50 | disposition home health service (06) | DRG 56 ==
PROVIDERS: ADMIT Physical Medicine & Rehabilitation
DX: I69.354 Hemiplegia and hemiparesis following cerebral infarction affecting left non-dominant side (principal); I63.9 Cerebral infarction, unspecified; I49.5 Sick sinus syndrome; F03.90 Unspecified dementia, unspecified severity, without behavioral disturbance, psychotic disturbance, mood disturbance, and anxiety; E78.5 Hyperlipidemia, unspecified; N18.9 Chronic kidney disease, unspecified; E11.22 Type 2 diabetes mellitus with diabetic chronic kidney disease; I12.9 Hypertensive chronic kidney disease with stage 1 through stage 4 chronic kidney disease, or unspecified chronic kidney disease; Z88.0 Allergy status to penicillin; Z95.0 Presence of cardiac pacemaker; Z95.810 Presence of automatic (implantable) cardiac defibrillator; Z88.8 Allergy status to other drugs, medicaments and biological substances; Z88.2 Allergy status to sulfonamides; Z79.4 Long term (current) use of insulin; Z79.899 Other long term (current) drug therapy; I69.992 Facial weakness following unspecified cerebrovascular disease
CPT/HCPCS: 10112

== ENCOUNTER 2019-03-21 09:05 | Inpatient (IN) | payer OTHER ==
[~2019-03-21] VITALS: Ht 160 cm; Wt 61.2 kg
--- NOTE | ~2019-03-21 | H ---
[facility] [place] [address] HISTORY AND PHYSICAL Name: SIENNA ORTEZ Room #: 360-P ADM IN M.R.#: [id number] Admission: 03/21/19 Attend Phys: Dexter Clemente DO Discharge: Date of : 31 Report #: [id number] THIS REPORT FOR: //name// CC: Dexter Calderon MD ROOM: 360. HISTORY OF PRESENT ILLNESS: This 88-year-old black female is admitted with dysarthria and weakness. The patient fell while going to the bathroom several nights ago and since then has been weaker than usual. This morning, the daughter noted the patient's speech was slurred and difficult and she felt she was having either a TIA or stroke. The patient was able to walk to the car. In the Emergency Room, she is complaining of significant weakness and is exhibiting apraxia of her voice. She had a stroke here in October of this year and then had a stroke in November while visiting family in [place]. She returned home in December, initially returned home, had not started therapy yet. The patient had been weaker than usual, but is certainly weaker since the fall in the last 4 days. The patient lives with her daughter and has her own room. She usually dress herself and bathe herself. She was able to get herself back to bed when she fell a few nights ago, so the daughter did not even know about it initially. PAST MEDICAL HISTORY: Hypertension, vasovagal syncope in 2006, treated with an implantable pacemaker defibrillator at [facility], hypertension, insulin-dependent diabetes, sick sinus syndrome, hyperlipidemia, chronic renal insufficiency, multiple previous CVAs. ALLERGIES: DETEMIR INSULIN, PENICILLIN, SULFA, and CRESTOR. MEDICATIONS ON ADMISSION: Pravastatin 20 mg nightly, fish oil 500 mg daily, nebivolol 10 mg daily, amlodipine 5 mg daily, losartan 100 mg daily, aspirin 81 mg daily, Belsomra 20 mg p.r.n. sleep, Brimonidine 1 drop each eye b.i.d., latanoprost 0.005% 1 drop right eye nightly, NovoLog insulin 3 units before meals t.i.d., Lantus 10 units at night. SYSTEM REVIEW: She lives with her daughter, her daughter has 2 children, ages 2-1/2 and 7. The patient walks with a walker. She no longer drives. She denies fever, chills, cough, exertional dyspnea, chest pain, nausea, vomiting, diarrhea or dysuria. PHYSICAL EXAM: Pleasant, somewhat cachectic elderly black female, very polite and cooperative. VITALS SIGNS: BP 194/74, pulse 60, respirations 17, temperature afebrile. HEAD: No rash or trauma. [facility] [address] [place] [address] HISTORY AND PHYSICAL Name: SIENNA ORTEZ Room #: 360-P [facility] IN M.R.#: [id number] Admission: 03/21/19 Attend Phys: Dexter Clemente DO Discharge: Date of : 31 Report #: [id number] EARS, NOSE, AND THROAT: No lesions. Has her own teeth. EYES: No icterus. NECK: Supple, without bruits. LUNGS: Clear. Cough is dry. HEART: Regular rhythm without murmur or gallop. BREASTS: No definite masses. ABDOMEN: Soft and nontender. EXTREMITIES: No edema. NEUROLOGIC: She is very slow to speak and has some apraxia of her voice. Her voice is weak. There are no lateralized neurologic deficits. She can differentiate right from left. Cranial nerves seem intact. LABORATORY DATA: Electrolytes are normal. BUN 15, creatinine 1.0, estimated GFR 64, blood sugar 170, calcium 10.9. Urinalysis negative. CAT scan of the head shows no acute process. IMPRESSION: 1. Dysarthria and apraxia with weakness, possible transient ischemic attack. 2. History of multiple cerebrovascular accidents. 3. Diabetes mellitus type 2, requiring insulin. 4. Hypertension. 5. Glaucoma. PLAN: Admit for serial neurologic testing. Carotid Dopplers, telemetry, Neurology consultation, PT and OT. Consider whether Bystolic, it is making the patient too tired. By: [id number] [id number] Dexter Clemente, DO /nt
[~2019-03-21 09:05] MED LIST changes: +ASPIR 8181 MG PO
[2019-03-21 09:07] VITALS: BP 187/74
[2019-03-21] MEDS ORDERED: BYSTOLIC10 MG PO (09:41)
[2019-03-21 10:10] LABS: ABSOLUTE NEUTROPHILS 3.9 thou/uL (1.4-8.2); BASOPHILS 0.6 % (0.0-2.0); EOSINOPHILS 2.4 % (0.0-3.0); HEMATOCRIT 39.6 % (37.0-47.0); HEMOGLOBIN 12.8 gm/dL (12.0-15.0); LYMPHOCYTES 25.2 % (24.0-44.0); MCH 32.2 pg (26.0-34.0); MCHC 32.4 g/dL (28.0-37.0); MCV 99.4 fL (80.0-100.0); MONOCYTES 7.7 % (1.0-8.0); PLATELET COUNT 260 thou/uL (150-400); POLYS 64.1 % (36.0-66.0); RBC 3.98 mil/uL (4.20-5.00); RDW 12.9 % (10.5-14.5); WBC 6.1 thou/uL (4.0-11.0)
[2019-03-21 10:18] LABS: URINE BILIRUBIN NEGATIVE (Negative); URINE BLOOD TRACE (Negative); URINE CLARITY SL CLOUDY; URINE COLOR YELLOW; URINE GLUCOSE-RANDOM* NEGATIVE (Negative); URINE KETONES NEGATIVE (Negative); URINE LEUKOCYTES-REFLEX NEGATIVE (Negative); URINE NITRITE-REFLEX NEGATIVE (Negative); URINE PROTEIN (DIPSTICK) NEGATIVE (Negative); URINE SPECIFIC GRAVITY 1.025 (1.005-1.035); URINE UROBILINOGEN 0.2 E.U./dl (0.2-1.0)
[2019-03-21 10:55] LABS: ANION GAP 5 mmol/L (7-16); BUN 15 mg/dL (7-18); CALCIUM 10.9 mg/dL (8.5-10.1); CHLORIDE 107 mmol/L (98-107); CO2 29 mmol/L (21-32); GLUCOSE 70 mg/dL (74-106); POTASSIUM 3.8 mmol/L (3.5-5.1); SODIUM 141 mmol/L (136-145)
[2019-03-21 11:01] LABS: TROPONIN-I <0.06 ng/mL (<0.06)
--- NOTE | 2019-03-21 12:06 | EKG ---
[place] [address] [place] [address] ELECTROCARDIOGRAM REPORT Name: PÉREZSIENNA Londono Room #: [facility]#: [id number] Admission: 03/21/19 Attend Phys: Discharge: Date of : 31 Report #: [id number] THIS REPORT FOR: //name// [facility] ED Test Date: 2019-03-21 Test Time: 10:38:37 Pat Name: SIENNA ORTEZ Department: Room: Gender: F General Counselor: missy : 1930 Requested By: Ghanshyam Silveira Order Number: [id number] MD: Manuel Quesada Measurements Intervals [place] Rate: 60 P: [place]: 195 QRS: 14 QRSD: 79 T: 45 QT: 435 QTc: 435 Interpretive Statements Atrial-paced rhythm Nonspecific ST segment abnormality Baseline wander in lead(s) V2 Compared to ECG 10/03/2018 15:59:13 No significant change was found Electronically Signed On 03-21-2019 12:05:58 PHARMACEUTICAL SALES SPECIALIST by Manuel Quesada [email or web address] <ELECTRONICALLY SIGNED> By: Manuel Quesada MD, [facility] 03/21/19 1205 1038 1038 Manuel Quesada MD, FACC /EPI
[2019-03-21 13:31] VITALS: BP 195/78
[2019-03-21 15:25] VITALS: BP 190/65
[2019-03-21 16:00] VITALS: BP 222/74
[2019-03-21 18:36] VITALS: BP 153/65
[2019-03-21 19:21] VITALS: BP 159/54
--- NOTE | 2019-03-21 22:39 | NUR ---
Patient was oriented but very, very slow to respond and seemed surprised/confused regarding routine matters like taking medication at bedtime/ having isulin injected subq, nursing assessing her. Nursing will continue to monitor.
[2019-03-22 04:15] VITALS: BP 164/68
[2019-03-22 04:45] LABS: CALCIUM 10.3 mg/dL (8.5-10.1); CREATININE 0.8 mg/dL (0.6-1.0); POTASSIUM 3.6 mmol/L (3.5-5.1)
[2019-03-22 05:03] LABS: ABSOLUTE NEUTROPHILS 2.3 thou/uL (1.4-8.2); BASOPHILS 0.6 % (0.0-2.0); EOSINOPHILS 2.9 % (0.0-3.0); HEMATOCRIT 39.1 % (37.0-47.0); HEMOGLOBIN 12.5 gm/dL (12.0-15.0); MCH 31.7 pg (26.0-34.0); MCHC 31.9 g/dL (28.0-37.0); MCV 99.4 fL (80.0-100.0); MONOCYTES 10.3 % (1.0-8.0); PLATELET COUNT 233 thou/uL (150-400); POLYS 43.2 % (36.0-66.0); RBC 3.94 mil/uL (4.20-5.00); RDW 12.7 % (10.5-14.5); WBC 5.4 thou/uL (4.0-11.0)
[2019-03-22 05:11] LABS: CHOLESTEROL 177 mg/dL (<200); HDL CHOLESTEROL 48 mg/dL (>40); LDL CHOLESTEROL 111 mg/dL (<100); TC:HDL 3.7 Ratio (Not establshd); TRIGLYCERIDE 91 mg/dL (<150); VLDL 18 mg/dL (<40)
[2019-03-22 05:24] LABS: SERUM ASSESSMENT Clear
[2019-03-22 08:07] VITALS: BP 169/71
[2019-03-22 11:25] VITALS: BP 147/57
[2019-03-22 15:28] VITALS: BP 150/76
--- NOTE | 2019-03-22 17:59 | NUR ---
PT HIGH FALL RISK...INSTRUCTED TO CALL FOR ASSIST...
[2019-03-22 19:10] VITALS: BP 146/55
[2019-03-23 02:05] LABS: GLYCOHEMOGLOBIN (HGB A1C) 5.8 % (4.8-5.6)
[2019-03-23 05:13] VITALS: BP 157/79
--- NOTE | 2019-03-23 06:32 | NUR ---
PT IS A/0X3 AND VERY SOFT SPOKEN. PT CAN USE CALL LIGHT TO CALL WHEN NEEDED. TO USE RESTROOM PT IS X1 WITH WALKER TO BSC. FOLLOWING POC FOR BLOOD SUGARS. PT HAS NO OTHER COMPLAINTS AND SLEPT COMFORTABLY ALL NIGHT LONG WITH SCD'S ON.
[2019-03-23 07:34] VITALS: BP 148/68
[2019-03-23 11:38] VITALS: BP 136/55
--- NOTE | 2019-03-23 14:20 | 2DMMODE ---
[facility] [place] [address] 2 D/M-MODE ECHOCARDIOGRAM Name: SIENNA ORTEZ R Room #: 360-P ADM IN M.R.#: [id number] Admission: 03/21/19 Attend Phys: Breana Dean Discharge: Date of : 31 Report #: [id number] THIS REPORT FOR: //name// APPROVED REPORT Study performed: 03/23/2019 13:40:17 EXAM: Limited 2D, Doppler, and color-flow Echocardiogram Patient Location: Echo lab Room #: 360 Status: routine BSA: 1.64 HR: 64 bpm BP: 136/55 mmHg Rhythm: NSR Other Information Study Quality: Excellent Indications TIA. Limited echo. (Complete echo done 10/07/18 for same indication) Hx: Pacemaker, CVA, TIA. Aortic Valve AoV Peak Rj.: 1.37 m/s AO Peak Gr.: 7.46 mmHg Mitral Valve E/A Ratio: 0.6 MV Decel. Time: 416.18 ms MV E Max Rj.: 0.59 m/s MV A Rj.: 1.04 m/s MV PHT: 120.69 ms Tricuspid Valve TR Peak Rj.: 2.52 m/s RAP Estimate: 5.00 mmHg TR Peak Gr.: 25.44 mmHg PA Pressure: 30.00 mmHg Left Ventricle The left ventricle is normal size. There is normal LV segmental wall motion. Left ventricular systolic function is hyperdynamic. LVEF is 65-70%. Mild diastolic dysfunction is present (impaired relaxation pattern). [facility] [address] [place] [address] 2 D/M-MODE ECHOCARDIOGRAM Name: SIENNA ORTEZ Room #: 360-P [facility] IN R.#: [id number] Admission: 03/21/19 Attend Phys: Breana Dean Discharge: Date of : 31 Report #: [id number] Right Ventricle The right ventricle is normal size. The right ventricular systolic function is normal. Atria The left atrium size is normal. Interatrial septum is aneurysmal with no shunting noted by color doppler. Bubble study done in September was negative. The right atrium size is normal. Aortic Valve The aortic valve is normal in structure. Trace aortic regurgitation. There is no aortic valvular stenosis. Mitral Valve The mitral valve is normal in structure. There is no mitral valve regurgitation noted. No evidence of mitral valve stenosis. Tricuspid Valve The tricuspid valve is normal in structure. Mild to moderate tricuspid regurgitation. Estimated PAP is 30mmHg. Great Vessels IVC is normal in size and collapses >50% with inspiration. Pericardium There is no pericardial effusion. <Conclusion> The left ventricle is normal size. Left ventricular systolic function is hyperdynamic. Mild diastolic dysfunction is present (impaired relaxation pattern). The right ventricle is normal size. The left atrium size is normal. Trace aortic regurgitation. There is no mitral valve regurgitation noted. Mild to moderate tricuspid regurgitation. Estimated PAP is 30mmHg. <ELECTRONICALLY SIGNED> By: Dg Nguyen MD 03/23/19 1420 19 142 Dg Nguyen MD /INF
[2019-03-23 16:09] VITALS: BP 126/81
--- NOTE | 2019-03-23 16:40 | NUR ---
INITIAL ASSESSMENT: SW reviewed chart and spoke with nursing. Pt was admitted from home due to RLE weakness. Neuro consulted. Therapy ordered to evaluate pt for discharge needs. SW met with pt at bedside. Introduced role of SW. Pt is alert/orientated and reports she lives at home with her dtr, Tory. Prior to admission pt was using a cane or walker for ambulation. Pt has been to [facility] for rehab and used [facility]. Pt's PCP is Dr. Calderon. Pt to have echo today. SW is following to assist as needed with discharge planning.
--- NOTE | 2019-03-23 19:49 | NUR ---
PT LIVES AT HOME WITH DAUGHTER...PROGRESSING TOWARDS DISCHARGE GOALS...SAT IN CHAIR MOST OF DAY...PACEMAKER INTERROGATED WITH NO PROBLEMS FOUND...
[2019-03-23 20:13] VITALS: BP 135/66
--- NOTE | 2019-03-24 00:11 | NUR ---
AT 2100 ASSESSMENT PT BLOOD SUGAR WAS 82. DID NOT GIVE 10 UNITS OF LONG ACTING. WILL CONTINUE TO MONITOR.
[2019-03-24 04:49] VITALS: BP 117/60
[2019-03-24 07:43] VITALS: BP 103/52
[2019-03-24 11:19] VITALS: BP 122/47
--- NOTE | 2019-03-24 15:27 | NUR ---
RICHARD reviewed chart and spoke with nursing. MatthewN consulted to evaluate pt for admission to inpt acute rehab. RICHARD discussed with [facility] HEAT TREAT INSPECTOR, who states pt does not qualify for [facility]. Pt is able to return home with HH. RICHARD met with pt at bedside to provide update. RICHARD also left voice message for pt's dtr, Tory. RICHARD is following to assist as needed with discharge planning.
[2019-03-24 15:30] VITALS: BP 114/45
--- NOTE | 2019-03-24 15:51 | NUR ---
DR PALENCIA REQUESTED [facility] CONSULT RE D/C...[facility] DECLINED PATIENT...WILL MONITOR
[2019-03-24 19:18] VITALS: BP 128/52
[2019-03-25 04:21] VITALS: BP 106/55
--- NOTE | 2019-03-25 05:29 | NUR ---
ASSUMED CARE OF PT AT 1900. A&Ox3, COOPERATIVE. VS STABLE. NO ACUTE DISTRESS. DENIED PAIN. APACED ON TELE W/ HR 60-64. PT WAS ABLE TO HAVE A BM AND WAS VERY HAPPY ABOUT THAT. UP X 1 TO BR W/ SBA AND WALKER. PT'S DAUGHTER CALLED AND STATED SHE WOULD LIKE DR PALENCIA TO CALL HER CONCERNING HER MOTHER'S MEDS. DAUGHTER STATED DR. RUSSELL TOLD HER A COUPLE OF MEDS PT IS TAKING COULD CAUSE LETHARGY AND PT WANTS TO KNOW WHICH ONES AND IF THEY CAN BE TITRATED. MESSAGE WILL BE GIVEN TO DAY RN. CURRENTLY RESTING. PROGRESSING TOWARDS POC GOALS.
[2019-03-25 06:25] VITALS: BP 155/66
[2019-03-25 07:35] VITALS: BP 126/57
[2019-03-25 11:30] VITALS: BP 128/52
--- NOTE | 2019-03-25 13:22 | NUR ---
CONSULT RECEIVED FOR [facility] ACUTE REHAB UNIT. Pt SEEN BY MOOK RANDLE NP. Pt DOES NOT MEET CRITERIA FOR [facility]. RECOMMENDING HH THERAPIES UPON D/C. Pt IN AGREEMENT WITH THIS PLAN. THANK YOU FOR THIS REFERRAL.
--- NOTE | 2019-03-25 14:51 | NUR ---
SW reviewed chart and spoke with nursing. Per physician progress note, pt will discharge home with HH services. SW met with pt at bedside to provide update. Pt states she would like to use the same HH as last time. Pt used [facility] when discharged home from . SW placed call to pt's dtr, Tory, to provide update. No option to leave voice message at [phone]. Cell phone ([phone]) was busy. shipping hand to fax HH referral to [facility] . SW is following to assist as needed with discharge planning.
--- NOTE | 2019-03-25 15:27 | NUR ---
DISCHARGE PLANNING. DISCHARGE PLAN IS TO HOME WITH HOME HEALTH SERVICES. PATIENT REFERRAL FAXED TO DEMETRI CALDERON [facility] PER REQUEST. CALL PLACED TO DELICIA MOSQUERA. SPOKE WITH ROXY, NOTIFIED OF REFERRAL. ROXY TO FACILITATE PATIENTS HH NEEDS ONCE FINAL DISCHARGE/HH ORDERS RECEIVED. FOLLOWING.
[2019-03-25 15:40] VITALS: BP 129/49
[2019-03-25 19:07] VITALS: BP 128/54
[2019-03-26 04:25] VITALS: BP 122/50
--- NOTE | 2019-03-26 07:28 | NUR ---
ASSUMED CARE OF PT AT 1900. VS STABLE. DENIED PAIN. UP TO BR W/ WALKER, SLOW BUT STEADY GAIT. NO ACUTE DISTRESS. PROGRESSING TOWARDS POC GOALS.
--- NOTE | 2019-03-26 10:25 | NUR ---
PT ASSIGNED ROOM 452 (MED/SURG) AT THIS TIME.
[2019-03-26 10:33] VITALS: BP 122/50
--- NOTE | 2019-03-26 14:00 | NUR ---
DISCHARGE NOTE: SW reviewed chart and spoke with nursing. Pt is medically stable for discharge home today with HH services. Finalized discharge orders/summary written. party planner to fax to [facility] . SW met with pt at bedside to discuss discharge. Pt is aware and agreeable. Pt's dtr, Tory, to provide transportation home at 1700. Contact info for HH placed in pt's discharge summary. No additional SW needs identified at this time, but is available to assist should needs arise.
[2019-03-26 15:22] VITALS: BP 98/47
--- NOTE | 2019-03-26 18:31 | NUR ---
PROGRESSING TOWARDS POC GOALS. DC TO HOME SOON.
== END 2019-03-26 19:04 | disposition home health service (06) | DRG 69 ==
LOC: ER 09:05 → EROBS 13:22 → 3W 13:22
PROVIDERS: Emergency Medicine; ADMIT Internal Medicine
DX: G45.9 Transient cerebral ischemic attack, unspecified (principal); N18.9 Chronic kidney disease, unspecified; E78.5 Hyperlipidemia, unspecified; I49.5 Sick sinus syndrome; F03.90 Unspecified dementia, unspecified severity, without behavioral disturbance, psychotic disturbance, mood disturbance, and anxiety; R47.1 Dysarthria and anarthria; R48.2 Apraxia; I12.9 Hypertensive chronic kidney disease with stage 1 through stage 4 chronic kidney disease, or unspecified chronic kidney disease; E11.22 Type 2 diabetes mellitus with diabetic chronic kidney disease; E78.00 Pure hypercholesterolemia, unspecified; Z79.82 Long term (current) use of aspirin; Z90.710 Acquired absence of both cervix and uterus; Z95.0 Presence of cardiac pacemaker; Z88.0 Allergy status to penicillin; Z88.2 Allergy status to sulfonamides; Z88.8 Allergy status to other drugs, medicaments and biological substances; Z79.4 Long term (current) use of insulin; Z79.899 Other long term (current) drug therapy; Z91.81 History of falling
CPT/HCPCS: 10879

== ENCOUNTER 2019-04-30 15:27 | Inpatient (IN) | payer OTHER ==
[~2019-04-30] VITALS: Ht 152.4 cm; Wt 44.0 kg
[~2019-04-30 15:27] MED LIST changes: +BYSTOLIC10 MG PO
[2019-04-30 15:28] VITALS: BP 232/96
[2019-04-30 16:34] LABS: ABSOLUTE NEUTROPHILS 6.4 thou/uL (1.4-8.2); BASOPHILS 0.5 % (0.0-2.0); HEMOGLOBIN 13.6 gm/dL (12.0-15.0); LYMPHOCYTES 16.3 % (24.0-44.0); MCH 32.6 pg (26.0-34.0); MCHC 32.4 g/dL (28.0-37.0); MCV 100.4 fL (80.0-100.0); MONOCYTES 5.1 % (1.0-8.0); PLATELET COUNT 247 thou/uL (150-400); POLYS 77.1 % (36.0-66.0); RBC 4.18 mil/uL (4.20-5.00); RDW 12.8 % (10.5-14.5); WBC 8.4 thou/uL (4.0-11.0)
[2019-04-30 16:59] LABS: ANION GAP 9 mmol/L (7-16); BUN 10 mg/dL (7-18); CALCIUM 10.1 mg/dL (8.5-10.1); CHLORIDE 105 mmol/L (98-107); CO2 27 mmol/L (21-32); CREATININE 0.8 mg/dL (0.6-1.0); GLUCOSE 160 mg/dL (74-106); MAGNESIUM 2.1 mg/dL (1.8-2.4); POTASSIUM 3.7 mmol/L (3.5-5.1); SODIUM 141 mmol/L (136-145); TROPONIN-I <0.06 ng/mL (<0.06)
[2019-04-30 17:33] LABS: URINE BILIRUBIN NEGATIVE (Negative); URINE BLOOD TRACE (Negative); URINE CLARITY CLEAR; URINE COLOR YELLOW; URINE GLUCOSE-RANDOM* 1+ (Negative); URINE KETONES NEGATIVE (Negative); URINE LEUKOCYTES-REFLEX NEGATIVE (Negative); URINE NITRITE-REFLEX NEGATIVE (Negative); URINE PROTEIN (DIPSTICK) NEGATIVE (Negative); URINE SPECIFIC GRAVITY 1.015 (1.005-1.035); URINE UROBILINOGEN 0.2 E.U./dl (0.2-1.0)
[2019-04-30 21:08] VITALS: BP 153/72
[2019-04-30] MEDS ORDERED: TRIAMTERENE-HC1 EAC2 PO (21:11)
[2019-04-30] MEDS ORDERED: ZOLPIDEM TARTRA10 MG PO (21:11)
[2019-04-30] MEDS ORDERED: LIPITOR 40 MG T40 M1 PO (21:13)
[2019-04-30 21:36] VITALS: BP 153/72
[2019-04-30 22:30] VITALS: BP 161/75
[2019-05-01] VITALS (7 sets, daily range): BP systolic 116–138; BP diastolic 46–67
[2019-05-02 04:55] VITALS: BP 149/56
[2019-05-02 08:50] VITALS: BP 165/67
[2019-05-02 16:00] VITALS: BP 143/56
[2019-05-02 20:00] VITALS: BP 163/55
[2019-05-02 20:15] VITALS: BP 163/55
[2019-05-03] VITALS (8 sets, daily range): BP systolic 105–163; BP diastolic 50–66
--- NOTE | 2019-05-07 07:48 | H ---
[facility] [place] [address] HISTORY AND PHYSICAL Name: SIENNA ORTEZ Room #: 219-P [facility] IN .R.#: [id number] Admission: 04/30/19 Attend Phys: Odell Calderon MD[facility] Dis[facility]: 05/03/19 Date of : 31 Report #: [id number] THIS REPORT FOR: //name// CC: Odell Calderon DATE OF SERVICE: 04/30/2019 CHIEF COMPLAINT: Altered mental status, hypertensive exacerbation and low blood sugar. HISTORY OF PRESENT ILLNESS: The patient is an 88-year-old black female, well known to me, admitted through the emergency room on the night of 04/30/2019 with mental status changes that persisted after correction of hypoglycemia and markedly elevated blood pressure. Today, she is feeling much better. She denies chest pain, shortness of breath, focal weakness or problems with her speech. PAST MEDICAL HISTORY: CVA 10/2006, 12/2014, 06/2017, 10/2018, 11/2018; TIAs; right lower quadrant hernia, no surgery required; insulin-dependent diabetes mellitus; hysterectomy in the ; chronic renal insufficiency; hypertension; hyperlipidemia; pacemaker for sick sinus syndrome, ICD in 2006; mild dementia; sciatica, right lower extremity; glaucoma; cataract surgical repair, fallen on 03/17/2019; TIA last month 03/21/2019, hospitalized for that. MEDICATIONS: Maxzide 25 one p.o. q. a.m., zolpidem 10 mg at bedtime p.r.n., Combigan eyedrops b.i.d., fish oil 1000 mg daily, Xalatan 0.005% eyedrops 1 drop both eyes at bedtime, NovoLog 3 units subcutaneous a.c., Lantus 5 units subcutaneously at bedtime, Lipitor 40 mg p.o. q. p.m., losartan 100 mg 1 p.o. daily, aspirin 81 mg p.o. daily, Belsomra 20 mg at bedtime p.r.n. sleep, and Bystolic 10 mg 1 p.o. daily. ALLERGIES: PENICILLIN, DETEMIR INSULIN, SULFA. SOCIAL HISTORY: Nonsmoker, nondrinker, lives with daughter, retired. FAMILY HISTORY: Noncontributory. REVIEW OF SYSTEMS: Mental status changes, hypertensive exacerbation, low blood sugar corrected by EMS and emergency care at [facility]. No chest pain, abdominal pain, difficulty breathing or cough. Remainder of system review is negative. OBJECTIVE: VITAL SIGNS: Temperature 36.9, pulse 63, respirations 16, blood pressure 136/67, pulse ox on room air is 100%. GENERAL: She is in no acute distress, conversant, feels close to baseline. [facility] [address] [place] [address] HISTORY AND PHYSICAL Name: SIENNA ORTEZ Room #: 219-P [facility] IN M.R.#: [id number] Admission: 04/30/19 Attend Phys: Odell Calderon MD, FAAF Discharge: 05/03/19 Date of : 31 Report #: [id number] HEENT: Pupils equal, round, reactive to light and accommodation. Extraocular muscles intact. Pharynx unremarkable. NECK: Supple. COR: S1, S2. CHEST: Clear. ABDOMEN: Soft, nontender. EXTREMITIES: No cyanosis, clubbing or edema. NEUROLOGIC: Intact without focal deficit. LABORATORY DATA: CBC: White count 8.4, hemoglobin 13.6, hematocrit 42.0, platelets 247,000. Serum chemistry: Sodium 141, potassium 3.7, chloride 105, CO2 of 27, anion gap is 9, BUN 10, creatinine 0.8, estimated glomerular filtration rate 82, glucose 160, calcium 10.1, magnesium 2.1. Troponin less than 0.06. Urinalysis showed 1+ glucose, trace blood. Chest x-ray shows unchanged left chest wall battery pack and ectasia of the thoracic spine with mild left convexity thoracic scoliosis. No acute pneumonia, pneumothorax or pleural effusion. CT scan of the head without contrast, no acute intracranial hemorrhage or large vessel territory infarction, extensive confluent nonspecific periventricular and subcortical white matter hypodensities compatible with small vessel ischemic disease. ASSESSMENT: Hypertension exacerbation; altered mental status; hypoglycemia; type 2 diabetes, using insulin. PLAN: Admit to hospital, monitor cardiac rhythm. Restart home meds, track blood pressure and blood sugar. <ELECTRONICALLY SIGNED> By: Odell Calderon MD, YULIYA, FACEP 05/07/19 0748 1856 11 Odell Calderon MD, YULIYA, FACEP /nt
--- NOTE | 2019-05-22 15:25 | EKG ---
[facility] [place] [address] ELECTROCARDIOGRAM REPORT Name: SIENNA ORTEZ Room #: 219-[facility] IN M.R.#: [id number] Admission: 04/30/19 Attend Phys: Odell Calderon MD, FAAF Discharge: 05/03/19 Date of : 31 Report #: [id number] THIS REPORT FOR: cc: Odell Calderon MD FAA FACE Odell Calderon MD FAA FACE Manuel Quesada MD [facility] THIS REPORT FOR: //name// [facility] ED Test Date: 2019-04-30 Test Time: 16:33:42 Pat Name: SIENNA ORTEZ Department: Room: 219 Gender: F Maintenance Mechanic Elevators: KIKI : 1930 Requested By: Viviane Richard Order Number: [id number] MD: Manuel Quesada Measurements Intervals [place] Rate: 61 P: PA: 176 QRS: 17 QRSD: 80 T: 36 QT: 444 QTc: 448 Interpretive Statements Atrial-paced rhythm Nonspecific ST segment abnormality Compared to ECG 03/21/2019 10:38:37 No significant change was found Electronically Signed On 05-01-2019 8:02:14 ANIMAL ASSISTED THERAPIST by Manuel Quesada [email or web address] <ELECTRONICALLY SIGNED> By: Manuel Quesada MD, FACC 05/01/19 0802 1633 1633 Manuel Quesada MD, FACC /EPI
--- NOTE | 2019-05-22 15:25 | EKG ---
[facility] Justo Arguello [employer] [place] [address] ELECTROCARDIOGRAM REPORT Name: SIENNA ORTEZ Room #: 219-[facility] IN M.R.#: [id number] Admission: 04/30/19 Attend Phys: Odell Calderon MD, FAAF Discharge: 05/03/19 Date of : 31 Report #: [id number] THIS REPORT FOR: cc: Odell Calderon MD FAA FACE Odell Calderon MD [facility] Manuel Quesada MD [facility] THIS REPORT FOR: //name// [facility] ED Test Date: 2019-04-30 Test Time: 19:11:00 Pat Name: SIENNA ORTEZ Department: Room: 219 Gender: F Lifeguard: FELIPE : 1930 Requested By: Ghanshyam Silveira Order Number: [id number] MD: Manuel Quesada Measurements Intervals [place] Rate: 107 P: 67 DE: 164 QRS: 16 QRSD: 104 T: 22 QT: 347 QTc: 463 Interpretive Statements Sinus tachycardia Probable left atrial enlargement nonspecific ST segment abnormality Baseline wander in lead(s) V1,V4 Compared to ECG 03/21/2019 10:38:37 Heart rate has increased Electronically Signed On 05-01-2019 8:11:46 NIGHT CLUB MANAGER by Manuel Quesada [email or web address] <ELECTRONICALLY SIGNED> By: Manuel Quesada MD, [facility] 05/01/19810 10 10 Manuel Quesada MD, [facility] /EPI
== END 2019-05-03 18:15 | disposition home health service (06) | DRG 69 ==
LOC: ER 15:27 → 2N 20:08 → EROBS 20:08 → 2N 21:35
PROVIDERS: Emergency Medicine Emergency Medical Services; ADMIT Family Medicine
DX: G45.9 Transient cerebral ischemic attack, unspecified (principal); E11.649 Type 2 diabetes mellitus with hypoglycemia without coma; I16.0 Hypertensive urgency; I12.9 Hypertensive chronic kidney disease with stage 1 through stage 4 chronic kidney disease, or unspecified chronic kidney disease; E11.22 Type 2 diabetes mellitus with diabetic chronic kidney disease; N18.9 Chronic kidney disease, unspecified; E78.5 Hyperlipidemia, unspecified; F03.90 Unspecified dementia, unspecified severity, without behavioral disturbance, psychotic disturbance, mood disturbance, and anxiety; I49.5 Sick sinus syndrome; M54.30 Sciatica, unspecified side; Z79.899 Other long term (current) drug therapy; Z88.8 Allergy status to other drugs, medicaments and biological substances; Z88.0 Allergy status to penicillin; Z88.2 Allergy status to sulfonamides; Z86.73 Personal history of transient ischemic attack (TIA), and cerebral infarction without residual deficits; Z79.4 Long term (current) use of insulin; Z90.710 Acquired absence of both cervix and uterus; Z95.0 Presence of cardiac pacemaker; Z98.49 Cataract extraction status, unspecified eye
CPT/HCPCS: 10081